=== PATIENT | male | born 1980 | race Caucasian/White ===

== ENCOUNTER 2020-05-03 23:17 | Emergency (ER) | payer OTHER, SELFPAY ==
[2020-05-03 23:26] VITALS: BP 139/89; PULSE 79; RESP 20; TEMP 36.4; O2SAT 100
--- NOTE | 2020-05-03 23:59 | ED.WOUNDLAC ---
HPI - Wound/Laceration General Chief Complaint: Wound/Laceration Stated Complaint: finger lac Time Seen by Provider: 05/03/20 23:59 Source: patient Mode of arrival: ambulatory Limitations: no limitations History of Present Illness HPI narrative: Patient presents for evaluation of left index finger laceration while putting a swing set together. Patient states he cut his finger while using a saw. He denies any numbness. Minimal bleeding. He is not up-to-date on her tetanus. No wrist pain. No difficulty bending the finger. No bruising, no nail avulsion. Patient is right-hand dominant. Related Data Allergies Allergy/AdvReac Type Severity Reaction Status Date / Time No Known Allergies Allergy Verified 05/04/20 00:37 Review of Systems Review of Systems: Narrative: CONSTITUTIONAL: Denies fever SKIN: Reports laceration MUSCULOSKELETAL: Denies finger pain NEUROLOGIC: Denies numbness PMFSH Past Medical History Medical History (Updated 05/04/20 @ 00:13 by Rosio Irvin MD) No pertinent past medical history Social History Social History (Updated 05/04/20 @ 00:10 by Rosio Irvin MD) Smoking status: Never smoker Substance use: never Living arrangements: with family Gender identity (if verbalized by the patient): Male Exam Narrative: Exam Narrative: GENERAL: Awake, alert, conversant HEAD: Normocephalic, atraumatic. EYES: PERRLA and EOMI. ENT: Nares clear, no rhinorrhea or epistaxis. Mucous membranes moist. NECK: Supple. CHEST: No respiratory distress, breathing even and non labored HEART: Regular rate, sinus rhythm ABDOMEN:Non distended, non tender EXTREMITIES: Normal range of motion. No edema. 1.5 cm superficial distal finger laceration to second digit left hand. Minimal active bleeding. No tissue avulsion. No nail avulsion. Intact sensation distally. Full flexion at the DIP and PIP. Radial pulse 2+. Intact sensation median, ulnar, radial nerve distribution. SKIN: Warm, dry, no rash. NEURO:No focal deficits. Alert and oriented x3 Course Vital Signs Vital signs: Vital Signs Temperature 36.4 C 05/03/20 23:26 Pulse Rate 79 05/03/20 23:26 Respiratory Rate 20 05/03/20 23:26 Blood Pressure 139/89 05/03/20 23:26 Pulse Oximetry 100 05/03/20 23:26 Temperature 36.9 C 05/04/20 00:44 Pulse Rate 74 05/04/20 00:44 Respiratory Rate 16 05/04/20 00:44 Blood Pressure 134/76 05/04/20 00:44 Pulse Oximetry 100 05/04/20 00:44 Procedures Laceration Laceration 1: Date: 05/04/20 Time: 00:11 Site: hand Side (If applicable): left Size (cm): 1.5 Description: linear Depth: simple, single layer Local Anesthetic: lidocaine 1% Amount of anesthesia used (mL): 2 Pre-repair: wound explored and irrigated ====== Skin Level ====== Skin layer closed with: prolene Size (cm): 5-0 Number of sutures: 2 Technique: simple, interrupted ====== Subcutaneous Layer ====== ====== Muscle Layer ====== ====== Tendon Layer ====== MDM - Wound/Laceration MDM Narrative Medical decision making narrative: Patient was superficial finger laceration to left second distal phalanx. Neurovascularly intact. Tetanus updated. Wound irrigated. Laceration repaired. Patient discharged home. Differential Diagnosis Differential diagnosis: Likely laceration and abrasion Discharge Plan Discharge Clinical Impression: Laceration Patient Disposition: Home, Self-Care Condition: Stable Instructions: Laceration (ED) Additional Instructions: Please keep your wound clean and dry. Please do not soak it in any water. You may wash with antibacterial soap and pat it to dry. Please do not scrub the wound. Signs of infection including redness, purulent drainage from the site, worsening pain. If you feel any of these are present, please return to the emergency department for reassessment.
[2020-05-04] MEDS: TETANUS,DIPHTHERIA,AC PERTUSSIS ADULT (0.5 ML) BOOSTRIX IM (00:37)
[2020-05-04 00:44] VITALS: BP 134/76; PULSE 74; RESP 16; TEMP 36.9; O2SAT 100
== END 2020-05-04 00:56 | disposition home or self-care (01) ==
LOC: ANHED 05-04 00:17
PROVIDERS: Emergency Provider Emergency Medicine
DX: S61.211A Laceration without foreign body of left index finger without damage to nail, initial encounter (principal); W27.8XXA Contact with other nonpowered hand tool, initial encounter; Z23 Encounter for immunization
CPT/HCPCS: 12001; 90471; 90715; 99282

== ENCOUNTER 2020-09-13 14:25 | Outpatient (CLI) | payer OTHER, SELFPAY ==
--- NOTE | 2020-09-16 13:44 | WPDPFTINT ---
PFT Interpretation PFT Interpretation: This PFT met all criteria for ATS standards and reproducibility FEV/FVC post bronchodilator 78% FEV1 91% FVC 90% TLC 86% RV 68% RV/TLC 22% DLCO 95% when adjusted for alveolar volume but not adjusted for hemoglobin Flow volume loops were normal Impression: Normal PFT. Clinical correlation is advised.
== END 2020-09-13 14:26 | disposition home or self-care (01) ==
PROVIDERS: Visit Provider Allergy & Immunology
DX: J45.40 Moderate persistent asthma, uncomplicated (principal)
CPT/HCPCS: 94060; 94726; 94729

== ENCOUNTER → 2022-04-18 15:42 | Outpatient (CLI) | payer OTHER, SELFPAY ==
--- NOTE | ~2022-04-18 | CT_ITS ---
EXAMINATION: CT sinus wo con DATE: 04/18/2022 16:01 INDICATION: Nasal polyps TECHNIQUE: Computed tomography (CT) of the paranasal sinuses was performed without contrast. Iterativ e reconstruction technique was employed. Exam dose: 292.39 mGy-cm total exam DLP. COMPARISON: None FINDINGS: There is soft tissue swelling engulfing the bilateral nasal turbinates, opacifying the midd le meatus bilaterally. There is complete opacification of the frontal sinuses, ethmoid air cells and sphenoid sinuses and ne ar complete opacification of the maxillary sinuses. There is complete opacification of the osteomeat al units. Status post right partial mastoidectomy. There is partial opacification of the mastoid air cells bilaterally. The middle and inner ear apparatus are normal bilaterally. IMPRESSION: Pansinusitis Extensive soft tissue thickening of the nasal cavities, middle meatus Opacification of the osteomeatal units Partial right mastoidectomy Partial opacification of the mastoid air cells Reviewed, dictated and finalized at [facility]. Reviewed, dictated and finalized at [facility].
== END ==
PROVIDERS: PCP Allergy & Immunology; Visit Provider Allergy & Immunology
DX: J33.8 Other polyp of sinus (principal)
CPT/HCPCS: 70486

== ENCOUNTER → 2022-05-08 08:40 | Outpatient (CLI) | payer OTHER, SELFPAY ==
--- NOTE | ~2022-05-08 | CT_ITS ---
EXAMINATION: CT IAC/mastoids BI wo con DATE: 05/08/2022 09:07 INDICATION: Conductive hearing loss. TECHNIQUE: Computed tomography (CT) of the temporal bones was performed without intravenous contrast. Automated exposure control and iterative reconstruction technique were employed. The dose-length pro duct was 328.20 mGy-cm. COMPARISON: CT sinuses 04/18/2022 FINDINGS: There is near complete opacification of the paranasal sinuses with widespread thickening an d sclerosis of the sinus coy, surgical changes, and erosions of some septa, consistent with chronic sinusitis. RIGHT TEMPORAL BONE: The internal auditory canal, cochlea, vestibule, semicircular canals, vestibular aqueduct, carotid ca nal, and jugular bulb are normal. There is material in the tympanic cavity including in Prussak space and around the stapes. There are erosions of the tip of the scutum. There are changes of mastoidecto my. There is opacification of some of the residual mastoid air cells. A myringotomy tube is noted. Th ere is thickening of the tympanic membrane. There is soft tissue thickening at the wall of the furnace installer al auditory canal. LEFT TEMPORAL BONE: The internal auditory canal, cochlea, vestibule, semicircular canals, vestibular aqueduct, carotid ca nal, and jugular bulb are normal. There is material in the tympanic cavity including in Prussak space and adjacent to stapes. There are erosions of hamate and scutum. A myringotomy tube is noted. There is thickening of the tympanic membrane. There is a mastoid effusion. The external auditory canal is n ormal. IMPRESSION: 1. Material in the bilateral tympanic cavities with erosions of bone, consistent with chronic otitis media and/or cholesteatoma. 2. Bilateral myringotomy tubes. 3. Chronic sinusitis. Reviewed, dictated and finalized at [facility]. IMPRESSION: 1. Material in the bilateral tympanic cavities with erosions of bone, consisten t with chronic otitis media and/or cholesteatoma. 2. Bilateral myringotomy tubes. 3. Chronic sinusitis.
== END ==
DX: H90.0 Conductive hearing loss, bilateral (principal); J32.9 Chronic sinusitis, unspecified
CPT/HCPCS: 70480

== ENCOUNTER 2022-12-20 19:15 | Emergency (ER) | payer OTHER, SELFPAY ==
--- NOTE | ~2022-12-20 | CT_ITS ---
EXAMINATION: CT brain wo con DATE: 12/20/2022 19:53 INDICATION: Vertigo. TECHNIQUE: Computed tomography (CT) of the head was performed without intravenous contrast. The mA wa s adjusted according to patient size. Iterative reconstruction technique was employed. The dose-lengt h product was 605.33 mGy-cm. COMPARISON: Head CT 04/18/2022 FINDINGS: There is no intracranial hemorrhage, acute infarction, or abnormal intracranial mass lesion . The ventricles are normal in size. The orbits are normal. There is mucosal thickening in the parana adonis sinuses with sclerosis of the sinus coy, consistent with chronic sinusitis. There is a left mas toid effusion. There is a right mastoidectomy. IMPRESSION: 1. Normal brain. 2. Chronic sinusitis. Reviewed, dictated and finalized at [facility].
[2022-12-20 19:22] VITALS: BP 123/76; PULSE 59; RESP 14; TEMP 36.6; O2SAT 100
--- NOTE | 2022-12-20 19:47 | ED.DIZZY ---
HPI - Dizziness General Chief Complaint: Dizziness Stated Complaint: dizziness Time Seen by Provider: 12/20/22 19:23 History of Present Illness HPI Narrative: 42-year-old male presented to the emergency department for evaluation of persistent dizziness. Patient states he had onset of nausea vomiting and vertigo that started this morning. Patient did have recent sinus surgery and does have bilateral tympanostomy tubes. Patient denies any fevers falls injuries. Patient denies any ear pain. Patient states that he does have worsening symptoms when he is up and ambulating. Patient states symptoms are improved when he is lying flat with eyes closed. Related Data Allergies Allergy/AdvReac Type Severity Reaction Status Date / Time No Known Allergies Allergy Verified 05/04/20 00:37 Review of Systems Review of Systems: All systems reviewed & are unremarkable except as noted in HPI and below PMFSH Past Medical History Medical History (Updated 12/20/22 @ 21:58 by Wu Gómez MD) No pertinent past medical history Social History Social History (Updated 05/04/20 @ 00:10 by Rosio Irvin MD) Smoking status: Never smoker Substance use: never Living arrangements: with family Gender identity (if verbalized by the patient): Male Exam Narrative: APPEARANCE: Well appearing, no pain, no distress, well-nourished. HEAD: normocephalic, atraumatic. EYES: PERRLA/EOMI, conjunctivae clear. NOSE: Normal no drainage EARS:TMS clear with good light reflex. Bilateral tympanostomy tubes THROAT: Pharynx clear, no exudate. NECK: Supple. No adenopathy, no masses. RESPIRATORY: Airway patent, respirations nonlabored. Clear to auscultation bilaterally, no rales, rhonchi, wheezing. CARDIOVASCULAR: Regular rate and rhythm without murmurs rubs or gallops. ABDOMINAL: Soft, nontender, nondistended, normal bowel sounds MUSCULOSKELETAL: Moves all extremities. Strength/ROM intact, No edema, No calf tenderness. NEURO: Alert. Cranial nerves II through XII intact. Normal strength and reflexes. No ataxia SKIN: Warm, dry. Normal Color Course Course Emergency Course: 42-year-old male with symptoms of vertigo. Patient was treated with IV diphenhydramine, IV normal saline and p.o. meclizine. Patient states he was still having some symptoms of vertigo but patient was able to ambulate to the bathroom without significant issues. Patient states he does feel improved compared to his symptoms at home. Head CT was negative for acute intracranial abnormality. Due to the patient still having some residual symptoms and not having a major improvement he was still offered admission and patient and family declined. Patient prefers to have outpatient follow-up. Patient was provided meclizine for additional vertigo control at home and was advised to have close follow-up with neurology. All questions and concerns were addressed. Vital Signs Vital signs: Vital Signs Temperature 97.8 F 12/20/22 19:22 Pulse Rate 59 L 12/20/22 19:22 Respiratory Rate 14 12/20/22 19:22 Blood Pressure 123/76 12/20/22 19:22 Pulse Oximetry 100 12/20/22 19:22 Oxygen Delivery Room Air 12/20/22 19:22 Temperature 97.8 F 12/20/22 19:22 Pulse Rate 59 L 12/20/22 19:22 Respiratory Rate 14 12/20/22 19:22 Blood Pressure 123/76 12/20/22 19:22 Pulse Oximetry 100 12/20/22 19:22 Oxygen Delivery Room Air 12/20/22 19:22 MDM - Dizziness Differential Diagnosis Differential diagnosis: Likely benign paroxysmal positional vertigo and orthostatic hypotension Imaging Data Radiologist's impression: Impressions Head CT 12/20/22 19:54 IMPRESSION: 1. Normal brain. 2. Chronic sinusitis. Discharge Plan Discharge Clinical Impression: Benign paroxysmal positional vertigo Patient Disposition: Home, Self-Care Condition: Stable Instructions: Antibiotic Form, Benign Paroxysmal Positional Vertigo (ED) Additional Instru
--- NOTE | 2022-12-20 19:50 | PC.NURSE ---
Pt is in CT
[2022-12-20] MEDS: diphenhydrAMINE HCl INJ 50 MG/ML VIAL 25 MG IV PUSH (20:09)
[2022-12-20] MEDS: SODIUM CHLORIDE 0.9% IV 1,000 ML 999 ML IV CONT (20:10)
[2022-12-20] MEDS: MECLIZINE HCL 25 MG TABLET PO (20:10)
== END 2022-12-20 21:32 | disposition home or self-care (01) ==
PROVIDERS: Emergency Provider Emergency Medicine
DX: H81.10 Benign paroxysmal vertigo, unspecified ear (principal); J32.9 Chronic sinusitis, unspecified
CPT/HCPCS: 70450; 96361; 96374; 99284; A9270; J1200; J7030